=== PATIENT | male | born 1980 | race Caucasian/White ===

== ENCOUNTER → 2023-05-21 | Outpatient (CLI) | payer OTHER ==
[~2023-05-21] MED LIST: Bactrim Ds Tab1 EACH PO; CEPH500 PO; ESCI10; HYDACE5 PO; HYDCOR1TOA TOP; Norco 5-325 Ta1 EACH PO; PENVK500 PO; SULTRIDS PO
== END ==
LOC: LAB SHORT 12:10 → LAB 12:10
DX: L02.31 Cutaneous abscess of buttock (principal)
CPT/HCPCS: 87070; 87075; 87205